=== PATIENT | female | born 1965 ===

== ENCOUNTER 2017-02-26 11:01 | Emergency (ER) | payer OTHER ==
[2017-02-26 11:05] VITALS: BMI 24.2
--- NOTE | 2017-02-26 11:27 | C.PDOC ---
History Of Present Illness 51 y/o female, with no significant PMHx, presents to the ED for evaluation of right sided headache associated with dizziness s/p fall. Patient states she missed the chair while sitting down, and landed on her back, hitting the back side of her head against a disposable trash can. Otherwise, denies any LOC, nausea, vomiting, or any other associated symptoms at this time. - HPI Time Seen by Provider: 02/26/17 11:24 Chief Complaint (Nursing): Trauma History Per: Patient History/Exam Limitations: no limitations Onset/Duration Of Symptoms: Hrs Injury Occurred (Timing): Hours Ago: Location Of Injury: Right: Head, Posterior: Head Associated Symptoms: Dizziness Recent travel outside of the [place]: No Additional History Per: Patient Past Medical History Reviewed: Historical Data, Nursing Documentation, Vital Signs Vital Signs: Last Vital Signs Temp 97.6 F 02/26/17 12:41 Pulse 66 02/26/17 12:41 Resp 16 02/26/17 12:41 BP 128/86 02/26/17 12:41 Pulse Ox 100 02/26/17 15:33 - Medical History PMH: Gastritis, Hypothyroidism Denies: Chronic Kidney Disease Surgical History: - [employer] Procedures ESOPHAGOGASTRODUODENOSCOPY [EGD] W/CLOSED BIOPSY (01/18/13) Family History: States: Unknown Family Hx - Social History Hx Alcohol Use: No Hx Substance Use: No - Immunization History Hx Tetanus Toxoid Vaccination: Yes Hx Influenza Vaccination: Yes Hx Pneumococcal Vaccination: No Review Of Systems Except As Marked, All Systems Reviewed And Found Negative. Constitutional: Negative for: Fever, Chills Gastrointestinal: Negative for: Nausea, Vomiting Skin: Negative for: Rash Neurological: Positive for: Headache, Dizziness. Negative for: Weakness, Numbness Physical Exam - Physical Exam Appears: Non-toxic, No Acute Distress Skin: Normal Color, Warm, Dry Head: Normacephalic, Tenderness (mild right side), Swelling (mild right side) Eye(s): bilateral: Normal Inspection, PERRL, EOMI Chest: Symmetrical Cardiovascular: Rhythm Regular, No Murmur Respiratory: Normal Breath Sounds, No Rales, No Rhonchi, No Wheezing Extremity: Bilateral: Atraumatic, Normal ROM Neurological/Psych: Oriented x3, Normal Speech, Normal Cognition, Other (neuro intact) ED Course And Treatment O2 Sat by Pulse Oximetry: 100 (RA) Pulse Ox Interpretation: Normal - CT Scan/US Head CT Other Rad Studies (CT/US): Read By Radiologist, Radiology Report Reviewed CT/US Interpretation: FINDINGS: HEMORRHAGE: No intracranial hemorrhage. BRAIN : Thomas-white matter differentiation is preserved. There is no mass, mass effect or abnormal extra-axial fluid collection. There is no territorial infarction. VENTRICLES: The ventricles are normal in size, shape and configuration. There is mild asymmetry in the size of the lateral ventricles, left larger than right, an anatomic variant. CALVARIUM: There is no calvarial fracture or extracranial soft tissue swelling. PARANASAL SINUSES: Predominantly clear. MASTOID AIR CELLS: Predominantly clear. OTHER FINDINGS: None. IMPRESSION: No acute intracranial abnormality. Medical Decision Making Medical Decision Making: Head CT ordered and reviewed. Pt was given Tylenol. 330: pt reassesed: imaging neg. pt asking for dc. states feels well for dc Disposition - Disposition Disposition: HOME/ ROUTINE Disposition Time: 01:00 Condition: STABLE Additional Instructions: please follow upw ith your doctor. return to er with worsneing symptoms or concerns. Instructions: Head Injury (ED) Forms: [employer] (Nepali) - Clinical Impression Clinical Impression: Head injury - Scribe Statement The provider has reviewed the documentation as recorded by the Scribe James Cary All medical record entries made by the Scribe were at my direction and personally dictated by me. I have reviewed the chart and agree that the record accurately reflects my personal performance of the history, physical exam, medical decision making, and the department course for this patient. I have also personally directed, reviewed, and agree with the discharge instructions and disposition.
--- NOTE | 2017-02-26 12:08 | CT ---
PROCEDURE: CT HEAD WITHOUT CONTRAST. HISTORY: Trauma COMPARISON: None available. TECHNIQUE: Axial computed tomography images were obtained through the head/brain without intravenous contrast. Radiation dose: Total exam DLP = 866.11 mGy-cm. This CT exam was performed using one or more of the following dose reduction techniques: Automated exposure control, adjustment of the mA and/or kV according to patient size, and/or use of iterative reconstruction technique. FINDINGS: HEMORRHAGE: No intracranial hemorrhage. BRAIN: Thomas-white matter differentiation is preserved. There is no mass, mass effect or abnormal extra-axial fluid collection. There is no territorial infarction. VENTRICLES: The ventricles are normal in size, shape and configuration. There is mild asymmetry in the size of the lateral ventricles, left larger than right, an anatomic variant. CALVARIUM: There is no calvarial fracture or extracranial soft tissue swelling. PARANASAL SINUSES: Predominantly clear. MASTOID AIR CELLS: Predominantly clear. OTHER FINDINGS: None. IMPRESSION: No acute intracranial abnormality.
[2017-02-26 12:43] VITALS: BP 128/86; PULSE 66; RESP 16; TEMP 97.6
[2017-02-26 15:33] VITALS: O2SAT 100
== END 2017-02-26 12:43 | disposition home or self-care (01) ==
LOC: C.ER 11:01
DX: S09.90XA Unspecified injury of head, initial encounter (principal); W19.XXXA Unspecified fall, initial encounter; E03.9 Hypothyroidism, unspecified

== ENCOUNTER 2018-10-10 07:31 | Emergency (ER) | payer OTHER | END 2018-10-10 08:53 | disposition home or self-care (01) | LOC: C.ER 07:31 ==

== ENCOUNTER 2018-12-18 07:56 | Outpatient (CLI) | payer OTHER | END 2018-12-18 07:57 | disposition home or self-care (01) | LOC: C.LAB 07:56 | DX: Z00.00 Encounter for general adult medical examination without abnormal findings (principal) ==